=== PATIENT | male | born 1970 | race Caucasian/White ===

== ENCOUNTER 2019-06-01 11:09 | Emergency (ER) | payer SELFPAY ==
[~2019-06-01] VITALS: Ht 182.9 cm; Wt 83.8 kg
[~2019-06-01 11:09] MED LIST: CEPH-443 PO; HYDR-4011 PO; IBUP-1542 PO; TAMS-14 PO
[2019-06-01 11:17] VITALS: Ht 182.9 cm; Wt 83.8 kg
[2019-06-01] MEDS ORDERED: KETOROLAC 30 MG INJ IV STA (14:23)
[2019-06-01] MEDS ORDERED: SOD CHLORIDE 0.9% 1,000 ML IV STA (14:23)
[2019-06-01] MEDS ORDERED: CEFTRIAXONE 1 GM/50 ML (PMX) 50 ML IVPB ONE (16:00)
[2019-06-01] MEDS ORDERED: TAMSULOSIN (SR) 0.4 MG CAP PO ONE (16:00)
[2019-06-01 16:23] VITALS: BP 120/70; PULSE 99; RESP 18
== END 2019-06-01 16:23 | disposition home or self-care (01) ==
LOC: FTE 11:09
DX: N20.0 Calculus of kidney (principal); N39.0 Urinary tract infection, site not specified
CPT/HCPCS: 36415; 74176; 80053; 81001; 83690; 85025; 87086; 96374; 96375; 99285; J0696; J1885; J7030